=== PATIENT | male | born 1965 | race Caucasian/White ===

== ENCOUNTER 2024-01-13 19:21 | Outpatient (CLI) | payer BC, SELFPAY ==
--- NOTE | 2024-01-13 19:45 | MR_ITS ---
[address] [address] Phone:?[phone] Fax:?[phone] Referring Physician Information: Issac Arenas M.D. [id number] [id number] Phone:?[phone] Fax:?[phone] Patient:Sukumar Manzo D.O.B:?1965 Sex:?Male Phone:?[phone] [facility] MRN:?[id number] Exam Date:?01/13/2024 EXAM: MRI of the RIGHT KNEE, without contrast CLINICAL HISTORY: Right knee pain. Work injury. Suspected right quadriceps tendon tear. History of previous surgery to the right knee. COMPARISONS: Plain radiographs 01/08/2024. Plain radiographs 05/27/2017. TECHNICAL: MR sequences of the right knee: sagittals: PD, PDFS coronals: PD, STIR axials: PD, T2 FS CONTRAST: None SEDATION: None FINDINGS: Bones: No fracture, bone marrow contusion, or other suspicious bone marrow signal abnormality. Patellofemoral joint: Cartilage: There is diffuse grade III and IV chondromalacia over the median patellar ridge and lateral patellar facet with associated subchondral cystic changes, a 1.0 x 1.0 cm area of grade III and IV chondromalacia over the lateral portion of the lateral femoral trochlea with mild subchondral cystic change, and diffuse grade II and III chondromalacia over the medial patellar facet. Retinacula: The medial and lateral retinacula are intact. Fat pads: The infrapatellar, quadriceps, and prefemoral fat pads are unremarkable. Knee joint: Effusion: Moderate right knee joint effusion. Popliteal cyst: Small popliteal cyst. Intra-articular bodies: There is a 5 x 3 x 5 mm intra-articular body posterior to the posterior horn/posterior root junction of the medial meniscus best seen on sagittal image 20 and coronal image 25. Posteromedial corner: The semimembranosus and pes anserine tendons are intact. Medial compartment: Medial meniscus: There is ill-defined near full-thickness tear of the posterior horn/posterior root junction through posterior root insertion of the medial meniscus and free edge fraying of the body of the medial meniscus. There is marked medial meniscal extrusion. Cartilage: 2.0 x 1.0 cm area of full-thickness chondral loss over the posterior weightbearing portion of the medial femoral condyle with subjacent subchondral edema-like signal and a smaller area of full-thickness chondral loss over the peripheral portion of the medial tibial plateau with subjacent subchondral edema-like signal. Lateral compartment: Lateral meniscus: Intact. Cartilage: Intact. Ligaments: Anterior cruciate ligament: Intact. Posterior cruciate ligament: Intact. Medial collateral ligament: Intact. Posterior oblique ligament: Intact. Fibular collateral ligament: Intact. Posterolateral corner: The distal biceps femoris tendon, iliotibial band, popliteus tendon, popliteus muscle, popliteofibular ligament, and arcuate ligament are intact. Extensor mechanism: Patellar tendon: There is mild tendinopathy of the proximal and mid portions of the patellar tendon. Quadriceps tendon: There is low to moderate grade partial tearing of the distal quadriceps tendon involving the superficial and intrasubstance fibers superimposed upon moderate distal quadriceps tendinopathy. An associated 8 x 4 mm ossific or calcific density within the distal quadriceps tendon may reflect dystrophic ossification or calcium hydroxyapatite deposition/calcific tendinitis. IMPRESSION: 1. Ill-defined near full-thickness tear of the posterior horn/posterior root junction through posterior root insertion of the medial meniscus and free edge fraying of the body of the medial meniscus. Marked medial meniscal extrusion. Postoperative changes involving the medial meniscus may also be present. Correlate with surgical history and any available previous MRI of the right knee. 2. 2.0 x 1.0 cm area of full-thickness chondral loss over the posterior weightbearing portion of the medial femoral condyle with subjacent subchondral edema-like signal and a smaller area of full-thickness chondral loss over the peripheral portion of the medial tibial plateau with subjacent subchondral edema-like signal. 3. Diffuse grade III and IV chondromalacia over the median patellar ridge and lateral patellar facet with associated subchondral cystic changes, 1.0 x 1.0 cm area of grade III and IV chondromalacia over the lateral portion of the lateral femoral trochlea with mild subchondral cystic change, and diffuse grade II and III chondromalacia over the medial patellar facet. 4. 5 x 3 x 5 mm intra-articular body posterior to the posterior horn/posterior root junction of the medial meniscus. 5. Low to moderate grade partial tearing of the distal quadriceps tendon involving the superficial and intrasubstance fibers superimposed upon moderate distal quadriceps tendinopathy. An associated 8 x 4 mm ossific or calcific density within the distal quadriceps tendon may reflect dystrophic ossification or calcium hydroxyapatite deposition/calcific tendinitis. 6. Mild tendinopathy of the proximal and mid portions of the patellar tendon. 7. Moderate right knee joint effusion. Small popliteal cyst. 8. No ligamentous injury or lateral meniscal pathology of the right knee. RCB Electronically signed on 01/14/2024 9:23:00 AM by Josh Guzmán M.D.
== END 2024-01-13 19:22 | disposition home or self-care (01) ==
LOC: MRI 19:24
PROVIDERS: PCP Nurse Practitioner Family; Visit Provider Orthopaedic Surgery Sports Medicine
DX: M25.561 Pain in right knee (principal); S83.241A Other tear of medial meniscus, current injury, right knee, initial encounter; M22.41 Chondromalacia patellae, right knee; S86.811A Strain of other muscle(s) and tendon(s) at lower leg level, right leg, initial encounter; M25.461 Effusion, right knee
CPT/HCPCS: 73721

== ENCOUNTER 2024-01-20 09:12 | Day surgery (SDC) | payer BC, SELFPAY ==
[2024-01-20] VITALS (16 sets, daily range): BP systolic 127–164; BP diastolic 85–108; PULSE 37–65; RESP 16; TEMP 35.7–36.8; O2SAT 96–99; BMI 39.6
[2024-01-20] MEDS: LACTATED RINGERS 1000 ML 1,000 ML 100 ML IV ×2 (08:30→12:47)
[2024-01-20] MEDS: SODIUM CHLORIDE 0.9 % (FLUSH) 10 ML SYRINGE IVF (09:22)
--- NOTE | 2024-01-20 09:46 | SUR.PREOP ---
TIME?OUT:?0950 PT/RN/MDA?VERIFICATION?OF?SURGICAL?SITE Right Knee,?PROCEDURE Nerve Block,?AND?CONSENT OBTAINED?PRIOR?TO?INVASIVE?PROCEDURE.
[2024-01-20] MEDS: fentaNYL 100 MCG/2 ML inj IVP (09:51)
[2024-01-20] MEDS: MIDAZOLAM HCL 1 MG/ML inj IVP (09:51)
--- NOTE | 2024-01-20 10:03 | P.NB_ITS ---
Nerve Block Nerve Block Time Seen by Provider: 09:58 Date Seen: 01/20/24 Type of block requested by surgeon for post-operative analgesia: femoral Side: right Time out performed: Yes Verification of patient name: Yes Verification of date of : Yes Site marking: site marked Name of person performing procedure: Peyman Continuous monitoring Was continuous monitoring of O2 sat, B/P, chemical laboratory assistant, recorded every 15 minutes?: Yes Procedure Checklist: sterile prep, needles and gloves Ultrasound guided. Images saved: Yes Medications given in 5ml increments after negative aspiration: Ropivicaine %: 0.5 mL: 20 Needle gauge: 20 Patient tolerated procedure well: Yes Additional comments: Needle noted adjacent to nerve Block Charges Block Charge (with Pro Fee): Femoral Nerve Use of Ultrasound Machine for Block: Yes- US Guidance/pain block
--- NOTE | 2024-01-20 10:04 | W.ANESCHARGE ---
Anesthesia Charges Start Date/Time Anesthesia Start Date: 01/20/24 Anesthesia Start Time: 10:16 Stop Date/Time Anesthesia Stop Date: 01/20/24 Anesthesia Stop Time: 12:11
[2024-01-20] MEDS: CEFAZOLIN 2 GM in 0.9 % SODIUM CHLORIDE Mini-bag 100 ML IVPB (10:20)
--- NOTE | 2024-01-20 11:46 | W.PM.H&PU ---
History & Physical Update History & Physical Update H&P Reviewed and patient assessed: No changes noted
--- NOTE | 2024-01-20 11:50 | P.ORPRC_ITS ---
Procedure Note Date of procedure: 01/20/24 Procedure: PREOPERATIVE DIAGNOSIS: 1. Right distal quadriceps tendon rupture, high-grade partial-thickness 2. Right knee medial meniscus tear 3. 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 Right distal quadriceps tendon rupture, high-grade partial-thickness 2. Right knee medial meniscus tear 3. 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 Right distal quadriceps tendon open repair of high-grade partial-thickness tear 2. Right knee arthroscopic partial medial meniscectomy and SURGEON: Issac Arenas MD. LOCKSTITCH BINDER: Brayden Ward PA-C - Of note, an special event assistant was critical for this case to aid in patient positioning, tissue retraction, limb manipulation/positioning, and closure. ANESTHESIA: Spinal anesthetic plus femoral nerve block IMPLANTS: Arthrex suture tape (x2) with single 2.6 mm FiberTak anchor TOURNIQUET: 60 minutes at 300 torr COMPLICATIONS: None evident INDICATIONS: The patient is a pleasant 58-year-old male who has experienced right distal thigh pain over the anterior aspect for number of months. Going down stairs and down hills has become increasingly painful. He feels weak. 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 In addition, he has experienced pain with twisting or pivoting on his knee. This comes with a history of a partial medial meniscectomy in the remote past. Given the failure of no noperative management, surgery was recommended to restore the function of the right lower extremity. FINDINGS: Within the knee during the scope portion, ACL and PCL intact robust. Lateral meniscus intact and robust. Healthy articular cartilage lateral compartment. Medial meniscus showed tearing of the posterior horn/posterior root and evidence of prior partial medial meniscectomy in the remote past in the posterior horn. There was also grade 3 chondromalacia over broad weight-bearing portion medial femoral condyle and within the patellofemoral compartment (primarily patella median ridge and lateral facet) but also a small region grade 4 chondromalacia on the medial femoral condyle posterior centrally and within the patella lateral facet. The quad tendon showed a high-grade partial-thickness tear of the central 2/3 of the tendon. There was some tophus within this tissue consistent with the MRI findings. We did send this to the pathologist for crystal identification. DESCRIPTION OF PROCEDURE: Following a thorough discussion of risks, benefits, and alternatives consent was obtained and the right knee was marked. The patient was brought to the operating room and placed supine on the operating table. Induction of anesthesia was undertaken. 3 g IV Ancef was administered within 1 hr of incision preoperatively. Proper time-out was performed identifying proper patient, site, procedure. The operative extremity was prepped and draped in the appropriate sterile fashion using ChloraPrep after the patient was positioned supine with all bony prominences well padded. The limb was exsanguinated and tourniquet inflated. We began with the knee arthroscopy portion with an anterior medial and anterolateral portals. This identified the findings as noted above. Thereafter, partial medial meniscectomy was performed with a combination of basket forceps and torpedo shaver. The articular cartilage was inspected and no loose flaps were identified. Following this, we began the open distal quad tendon repair portion as follows: A longitudinal, anterior, midline skin incision was made starting approximately 3cm proximal to the superior pole of the patella and advanced just to the superior pole of the patella. A small seroma/hematoma was encountered and evacuated. The superficial tissue was debrided from the patella insertion. Small tophus was encountered that felt to be a almost gouty in consistency. Some this was captured for pathology/crystal identification. Thereafter, further debridement of the patellar insertion was performed a rongeur and curette. The tendon was also debrided with a combination of curette and rongeur. The tendon was then whip stitch in a running Krackow manner. Suture tape was utilized for this going up and back distal in the tendon with 2 tails. These 2 tails were then secured with a 2.6 mm FiberTak RC anchor in the patella. This was drilled, the anchor placed, and the 2 knotless mechanisms allowed passage of the 2 SutureTape tails. This was then do not into the proximal patella abutting it with excellent reapproximation of the tissue. We then oversewed the tendon with a 2-0 Stratafix. The paratenon was also repaired with 2-0 Stratafix. Thorough irrigation normal saline was performed both prior to the quad closure as well as at various layers of closure. The remaining subcutaneous and subcuticular closure was performed with 2-0 Vicryl and 3-0 Monocryl (which was also utilized for the portal closure). Dressings were applied and the patient was awoken from anesthesia after the tourniquet deflated and transferred the PACU in stable condition. PLAN: 1. Weight bear as tolerated operative extremity with the brace locked in extension. 2. Ice. 3. Twice a day aspirin 4. Analgesics PRN (e.g. acetominophen, ibuprofen, oxycodone). 5. F/U in 2 weeks for wound check
--- NOTE | 2024-01-20 12:32 | W.ANESCHARGE ---
Anesthesia Charges Start Date/Time Anesthesia Start Date: 01/20/24 Anesthesia Start Time: 10:16 Stop Date/Time Anesthesia Stop Date: 01/20/24 Anesthesia Stop Time: 12:11
--- NOTE | 2024-01-20 12:38 | SUR.PHASEI ---
Patient's HR dropping below 40. BRY Turner notified and in to see patient. HOB lowered. BP stable 140's/ 90's. Patient to be monitored for additional 5 minutes.
--- NOTE | 2024-01-20 12:51 | SUR.PHASEI ---
1242: Patient's HR continues to drop below 40 sustained. BRY Turner notified. BP remains stable 149/87. Patient denies lightheadedness, dizziness, etc. Dr. Morley in to see patient. Patient cleared to proceed to Phase II. Patient to remain on pulse ox monitor.
== END 2024-01-20 13:52 | disposition home or self-care (01) ==
LOC: OR 09:12
PROVIDERS: PCP Nurse Practitioner Family; Visit Provider Orthopaedic Surgery Sports Medicine
PROC: (CPT 29870; principal; 2024-01-20 10:30)
PROC: (CPT 27385; 2024-01-20 10:30)
DX: S76.111A Strain of right quadriceps muscle, fascia and tendon, initial encounter (principal); S83.241A Other tear of medial meniscus, current injury, right knee, initial encounter; M94.261 Chondromalacia, right knee; G89.18 Other acute postprocedural pain
CPT/HCPCS: 27385; 29881; 01320; 01400; 64447; 76942; 88305; C1713; J0690; J2250; J2405; J2704; J2795; J3010; J3490; J7120; L1833

== ENCOUNTER 2024-06-14 08:00 | Outpatient (RCR) | payer BC, SELFPAY | END 2024-09-30 08:33 | disposition home or self-care (01) | PROVIDERS: PCP Nurse Practitioner Family; Visit Provider Physician Assistant Surgical | DX: S76.119A Strain of unspecified quadriceps muscle, fascia and tendon, initial encounter (principal); S83.241A Other tear of medial meniscus, current injury, right knee, initial encounter; M25.561 Pain in right knee; M62.81 Muscle weakness (generalized); Z51.89 Encounter for other specified aftercare | CPT/HCPCS: 97110; 97116; 97140; 97161 ==